=== PATIENT | female | born 1975 | race Two or more races ===

== ENCOUNTER 2022-12-16 18:21 | Emergency (ER) | payer OTHER ==
[~2022-12-16] VITALS: Ht 149.9 cm; Wt 49.9 kg
== END 2022-12-16 21:50 | disposition home or self-care (01) ==
LOC: ER 18:21
DX: S09.8XXA Other specified injuries of head, initial encounter (principal); W22.01XA Walked into wall, initial encounter; Y93.89 Activity, other specified; Y92.520 Airport as the place of occurrence of the external cause; Z91.013 Allergy to seafood